=== PATIENT | male | born 1955 | race Caucasian/White ===

== ENCOUNTER 2018-11-20 06:38 | Day surgery (SDC) | payer MEDICARE, OTHER ==
[~2018-11-20] VITALS: Ht 177.8 cm; Wt 116.7 kg
[~2018-11-20 06:38] MED LIST: ATOR40TA68 PO; BENAZEPRIL PO; ENALAPRIL PO; HYDROCHLOROTHIAZIDE PO; ICOS0.5C PO; OMEGA3 PO; RANI-535 PO; VITAMIN D3
[2018-11-20 07:28] VITALS: Ht 177.8 cm; Wt 116.7 kg
[2018-11-20 07:47] VITALS: BP 139/92; PULSE 70; RESP 20
[2018-11-20] MEDS ORDERED: PROPOFOL 20 ML ONE (07:59)
[2018-11-20] MEDS ORDERED: FENTAnyl 50 MCG/ML VIAL IV PRN ×3 (08:00)
[2018-11-20] MEDS ORDERED: hydrALAzine 20 MG INJ IV PRN (08:00)
[2018-11-20] MEDS ORDERED: HYDROmorphONE 1 MG/5 ML IV SYRINGE IV PRN ×3 (08:00)
[2018-11-20] MEDS ORDERED: OXYCODONE/ACETAMINOPHEN (5/325) TAB PO PRN ×2 (08:00)
[2018-11-20] MEDS ORDERED: IPRATROPIUM (NEB) 0.5 MG/2.5 ML AMP HHN PRN (08:00)
[2018-11-20] MEDS ORDERED: MEPERIDINE 25 MG INJ IV PRN (08:00)
[2018-11-20] MEDS ORDERED: ALBUTEROL 0.083% (NEB) 2.5 MG/3 ML AMP HHN PRN (08:00)
[2018-11-20] MEDS ORDERED: LABETALOL HCL 20MG INJ IV PRN (08:00)
[2018-11-20] MEDS ORDERED: EPHEDrine 25 MG/5 ML SYG IV PRN (08:00)
[2018-11-20] MEDS ORDERED: ONDANSETRON 4 MG INJ IV PRN (08:00)
[2018-11-20] MEDS ORDERED: DIPHENHYDRAMINE 50 MG INJ IV PRN (08:00)
[2018-11-20] MEDS ORDERED: LIDOCAINE 100 MG SYRINGE ONE (08:00)
[2018-11-20 09:36] VITALS: BP 130/90; PULSE 67; RESP 18
== END 2018-11-20 11:37 | disposition home or self-care (01) ==
LOC: GIL 06:38
PROVIDERS: ATTEND Internal Medicine Gastroenterology
DX: Z12.11 Encounter for screening for malignant neoplasm of colon (principal); D12.5 Benign neoplasm of sigmoid colon; K64.8 Other hemorrhoids; I10 Essential (primary) hypertension; E78.5 Hyperlipidemia, unspecified
CPT/HCPCS: 45380; 88305; J2001